=== PATIENT | female | born 1985 | race Caucasian/White ===

== ENCOUNTER 2016-05-07 06:57 | Inpatient (IN) | payer BC ==
[2016-05-07] MEDS: RINGERS SOLUTION,LACTATED 1,000 ML IV PRN ×2 (07:25→08:28)
[2016-05-07] MEDS ORDERED: OXYTOCIN 20 UNITS in RINGERS SOLUTION,LACTATED 1,000 ML IV ONE (09:00)
[2016-05-07] MEDS ORDERED: ceFAZolin SODIUM 2 GM in DEXTROSE 5 % IN WATER 50 ML IV ONE ×2 (09:00)
[2016-05-07] MEDS ORDERED: RINGERS SOLUTION,LACTATED 1,000 ML IV ONE (10:00)
[2016-05-07] MEDS ORDERED: ONDANSETRON HCL/PF 2 MG/ML VIAL IV PRN (10:52)
[2016-05-07] MEDS ORDERED: SIMETHICONE 80 MG TAB.CHEW PO PRN (10:52)
[2016-05-07] MEDS ORDERED: oxyCODONE HCL/ACETAMINOPHEN 1 TAB TABLET PO PRN (10:52)
[2016-05-07] MEDS ORDERED: BISACODYL 10 MG SUPP.RECT RC PRN (10:52)
[2016-05-07] MEDS ORDERED: SENNOSIDES 8.6 MG TABLET PO PRN (10:52)
--- NOTE | 2016-05-07 10:56 | OR ---
Operative Report - Dictated Report Narrative: Indication: 31-year-old 5 para 2 at 39 2/7 weeks with prior section desires repeat . Pre Operative Diagnosis: 39-2/7 week intrauterine , prior section Post Operative Diagnosis: Same. Procedure: Repeat low transverse section. Surgeon: Ariel Davies DO Supply And Distribution Manager: none Anesthesia: Spinal, TAP block Estimated Blood Loss: 300 mL Urine Output: 300 mL clear urine Fluids Replacement: 1600 mL Drains: Osullivan to gravity Surgical Complications: None Specimens: Placenta to freezer Findings: Female in cephalic presentation born at 1003 on 05/07/2015 with Apgars 9 and 9 weighing 3570 g. Normal uterus, tubes, ovaries Technique: The patient was taken to the operating room and placed in dorsal supine position with a left lateral tilt. After adequate spinal anesthesia, osullivan catheter inserted, SCDs placed, and 2 g of Ancef given preoperatively, the abdominal cavity was entered using sharp and blunt dissection. Two rolled laps were placed in the pericolic gutters on either side of the uterus. A transverse incision was made in the lower uterine segment and extended laterally and upwardly with digital traction. Clear fluid was noted upon amniotomy. The was delivered easily. The cord was clamped and cut and infant was handed off to awaiting peditrician. The placenta was allowed to deliver spontaneously. The uterus was cleared of clot and debris. Uterine incision was closed with 0 Vicryl using a running stitch. A second imbricating layer was placed. Excellent hemostasis was noted. The rolled laps were removed from the abdominal cavitiy. The peritoneum was closed with a running 3- 0 Monocryl. The same suture was used to approximate the rectus and pyramidalis muscles. The fascia was closed with a running 0 Vicryl. The subcutaneous layer was closed with a running 3-0 Monocryl. The same suture was used to approximate the subdermal layer. The skin was closed with a running 4-0 Monocryl. Exophin sterile dressing applied. Sponge, lap, needle, and instrument count were correct x 2. Disposition: To post anesthesia care unit in good condition
[2016-05-07] MEDS: IBUPROFEN 800 MG TABLET PO PRN ×2 (12:20→19:05)
[2016-05-07] MEDS: oxyCODONE HCL/ACETAMINOPHEN 1 TAB TABLET PO PRN (12:21)
[2016-05-07] MEDS: ENOXAPARIN SODIUM 40 MG/0.4 ML SYRG SC SCH (19:06)
[2016-05-07] MEDS: DOCUSATE SODIUM 100 MG CAPSULE PO SCH (20:57)
[2016-05-08] MEDS: IBUPROFEN 800 MG TABLET PO PRN ×4 (01:29→22:14)
[2016-05-08] MEDS: oxyCODONE HCL/ACETAMINOPHEN 1 TAB TABLET PO PRN (04:05)
[2016-05-08] MEDS: DOCUSATE SODIUM 100 MG CAPSULE PO SCH ×2 (09:54→22:14)
[2016-05-08] MEDS: PRENATAL VIT#96/FERROUS FUM/FA 1 TAB TABLET PO SCH (09:54)
[2016-05-08] MEDS: VITAMIN E (DL,TOCOPHERYL ACET) 400 UNITS CAPSULE PO SCH (09:54)
[2016-05-08] MEDS: ASCORBIC ACID 500 MG TABLET PO SCH (09:54)
[2016-05-08] MEDS: [UNRECOGNIZED DRUG - OTHER] PO SCH (11:22)
[2016-05-08] MEDS: CALCIUM PO SCH (11:22)
--- NOTE | 2016-05-08 12:08 | PN ---
Subjective - Date and Time Seen Date: 05/08/16 Time: 12:07 Objective - Vitals Vitals: Last Vital Signs Temp 36.6 C 05/08/16 01:32 Pulse 79 05/08/16 06:57 Resp 18 05/08/16 06:57 BP 112/69 05/08/16 06:57 Pulse Ox 98 05/08/16 06:57 Patient denies complaints. Tolerating regular diet. Ambulating without difficulty. Pain well controlled. Lochia wnl. Abdomen - soft, appropriately tender Incision - clean, dry, intact Uterus - firm, at umbilicus -1 No calf tenderness Impression: Post op day #1 s/p repeat section. Plan: Continue routine post-operative/ care Cauti Physician Documentation - Urinary Catheter Management Urethral (Soliz) Date of Insertion: 05/07/16 Date of Removal: 05/07/16 Time of Removal: 22:15
[2016-05-08] MEDS: ENOXAPARIN SODIUM 40 MG/0.4 ML SYRG SC SCH (18:58)
[2016-05-09] MEDS: IBUPROFEN 800 MG TABLET PO PRN (04:46)
[2016-05-09] MEDS: DOCUSATE SODIUM 100 MG CAPSULE PO SCH (08:16)
[2016-05-09] MEDS: VITAMIN E (DL,TOCOPHERYL ACET) 400 UNITS CAPSULE PO SCH (08:16)
[2016-05-09] MEDS: ASCORBIC ACID 500 MG TABLET PO SCH (08:16)
[2016-05-09] MEDS: PRENATAL VIT#96/FERROUS FUM/FA 1 TAB TABLET PO SCH (08:16)
[2016-05-09] MEDS: [UNRECOGNIZED DRUG - OTHER] PO SCH (09:17)
[2016-05-09] MEDS: CALCIUM PO SCH (09:17)
[2016-05-09 09:26] VITALS: BP 132/74
--- NOTE | 2016-05-09 13:19 | PN ---
Subjective - Date and Time Seen Date: 05/09/16 Time: 13:19 Objective - Vitals Vitals: Last Vital Signs Temp 36.8 C 05/09/16 08:20 Pulse 98 05/09/16 08:20 Resp 16 05/09/16 08:20 BP 132/74 05/09/16 08:20 Pulse Ox 98 05/09/16 08:20 Patient denies complaints. Ambulating well. Tolerating regular diet. Pain well controlled. Lochia wnl. Abdomen - soft, appropriately tender Incision - clean, dry, intact Uterus - firm, at umbilicus -2 No calf tenderness Impression: Post op day #2 s/p repeat section. Plan: Routine discharge instructions given Cauti Physician Documentation - Urinary Catheter Management Urethral (Soliz) Date of Insertion: 05/07/16 Date of Removal: 05/07/16 Time of Removal: 22:15
== END 2016-05-09 12:00 | disposition home or self-care (01) | DRG 766 ==
LOC: MS 06:57
PROVIDERS: ADMIT Obstetrics & Gynecology; ATTEND Obstetrics & Gynecology
PROC: 10D00Z1 Extraction of Products of Conception, Low, Open Approach (ICD-10-PCS; principal; 2016-05-07 10:15)
DX: O34.211 Maternal care for low transverse scar from previous cesarean delivery (principal); Z3A.39 39 weeks gestation of pregnancy; Z37.0 Single live birth

== ENCOUNTER 2019-02-02 04:56 | Inpatient (IN) ==
[2019-02-02] MEDS ORDERED: RINGER'S SOLUTION,LACTATED 1,000 ML IV PRN (05:02)
[2019-02-02] MEDS ORDERED: OXYTOCIN 20 UNITS in RINGER'S SOLUTION,LACTATED 1,000 ML IV ONE (05:02)
[2019-02-02] MEDS ORDERED: ceFAZolin SODIUM/DEXTROSE,ISO 2 GM/50 ML BAG IV ONE (05:02)
[2019-02-02] MEDS: RINGER'S SOLUTION,LACTATED 1,000 ML IV PRN ×2 (05:15→08:22)
[2019-02-02 05:55] LABS: Cocaine Ur Negative (NEGATIVE); Urine Barbiturate Negative (NEGATIVE); Urine Benzodiazepines Negative (NEGATIVE); Urine Opiates Negative (NEGATIVE); Urine PCP Negative (NEGATIVE); Urine THC Negative (NEGATIVE)
--- NOTE | 2019-02-02 07:15 | ANES ---
Anesthesia Pre Procedure Eval Vitals/Labs: Last Vital Signs Temp 36.7 C 02/02/19 06:18 Pulse 89 02/02/19 06:18 Resp 18 02/02/19 06:18 BP 146/84 H 02/02/19 06:18 Pulse Ox 98 02/02/19 06:18 HOME MEDICATIONS Folic Acid 0.8 mg PO DAILY 09/13/12 [Last Taken 09/12/12] Vits96/Iron Fum/Folic [ Tablet] 1 tab PO DAILY 09/13/12 [Last Taken 09/12/12] Vitamin E 400 unit PO DAILY 09/14/12 [Last Taken Unknown] Garlic 1,000 mg PO TID 03/11/16 [Last Taken Unknown] ascorbic acid (vitamin C) 500 mg capsule 3,000 mg PO DAILY cap 07/13/18 [Last Taken Unknown] cholecalciferol (vitamin D3) 1,000 unit capsule 1,000 unit PO DAILY 07/13/18 [Last Taken Unknown] ferrous sulfate 325 mg (65 mg iron) tablet 325 mg PO DAILY tab 07/13/18 [Last Taken Unknown] magnesium 250 mg tablet 750 mg PO DAILY tab 07/13/18 [Last Taken Unknown] mecobalamin (vitamin B12) 1,000 mcg disintegrating tablet,sublingual 1,000 mcg SL TID 07/13/18 [Last Taken Unknown] [place]-3 Fatty Acids/Fish Oil [Fish Oil 1,000 mg Capsule] 1 ea PO DAILY 02/02/19 [Last Taken Unknown] Allergies/Adverse Reactions: Allergies Allergy/AdvReac Type Severity Reaction Status Date / Time tramadol AdvReac Unknown Dizzy Verified 02/02/19 05:44 - Planned Procedure Planned Procedure: Repeat w/ poss abdominal scar revision Medication List Reviewed:: Yes Allergies Verified: Yes Medical History (Updated 07/13/18 @ 13:10 by Michael Davies DO) Body mass index (BMI) of 38.0 to 38.9 in adult (Chronic) Body piercing Onset Date: Unknown Headache Onset Date: Unknown Heart murmur Onset Date: ~2004 Obesity Onset Date: Unknown Wears glasses Onset Date: Unknown Abnormal Pap smear of cervix Onset Date: ~2005 w/ colpo- neg results. performed in [place] , spontaneous Onset Date: ~2006 2006,2015 Anemia Onset Date: ~2009 w/ Appendicitis Onset Date: 09/20/10 Asmita Depression Onset Date: ~12/24/12 tx'd w/Prozac for 1-2 months. no meds after that Surgical History (Updated 07/13/18 @ 13:10 by Michael Davies DO) Previous section (Chronic) x3 History of colposcopy Onset Date: ~2005 Negative results. performed in [place] Hx of appendectomy Onset Date: 09/20/10 Asmita Previous section Onset Date: 06/13/092009-Primary breech, 2012-Rpt, 2017-Rpt, Family History (Updated 07/13/18 @ 09:47 by Dwight Cox RN) Mother Hypertension Arthritis Hepatitis A as an infant Gastric ulcer Father Hyperlipemia Arthritis Sister Asthma Uncle CVA (cerebral vascular accident) Hypertension Myocardial infarction Aunt cervical cancer Son Heart murmur - Family Anesthesia History Family History:: no untoward family reactions to anesthesia - Airway/Neck/Teeth Within Normal Limits:: Yes Teeth Condition: intact Neck Exam: full range of motion Mallampatti Score: 2 Thyromental (T-M) distance: > 6 cm Mandibulo Hyoid distance: > 3 cm - Respiratory Respiratory Physical: lungs clear Smoking Status: Former smoker Sleep Apnea currently treated: No Sleep Apnea by current assessment: No - Cardiovascular Tolerate Activity: Fair Heart Sounds: S1 & S2, Regular - Anesthesia Assessment and Plan ASA Class: PS, II Anesthesia Type Plan: Spinal - tap block for postop analgesia
[2019-02-02] MEDS ORDERED: ONDANSETRON HCL/PF 2 MG/ML VIAL IV PRN (09:19)
[2019-02-02] MEDS ORDERED: IBUPROFEN 800 MG TABLET PO PRN (09:19)
[2019-02-02] MEDS ORDERED: BISACODYL 10 MG SUPP.RECT RC PRN (09:19)
[2019-02-02] MEDS ORDERED: SENNOSIDES 8.6 MG TABLET PO PRN (09:19)
--- NOTE | 2019-02-02 09:29 | OR ---
Operative Report - Dictated Report Narrative: Indication: 33-year-old 6 para 3-0-2-3 at 37-1/7 weeks with prior section x3 presents to labor and delivery for repeat low transverse section with contractions every 2 to 5 minutes of increasing intensity. status: Planned Pre Operative Diagnosis: 37 1/7-week intrauterine . Prior section x3. Early labor. Morbid obesity. Post Operative Diagnosis: Same. Procedure: Repeat low transverse section. Surgeon: Ariel Davies DO Communications Department Chairperson: OR Staff Anesthesia: Spinal, TAP block Estimated Blood Loss: 300 mL Urine Output: 500 mL clear urine Fluids Replacement: 2500 mL of crystalloid Drains: Osullivan to gravity Surgical Complications: None Specimens: Placenta to freezer Findings: Female born at 0814 on 02/02/2018 with Apgars 9 and 9, weighing 3337 g in cephalic presentation. Normal uterus, tubes, ovaries. Lower uterine segment was at least 3 mm in thickness with very minimum scarring throughout the entire pelvis and abdomen. Technique: The patient was taken to the operating room and placed in dorsal supine position with a left lateral tilt. After adequate spinal anesthesia, osullivan catheter inserted, SCDs placed, and 2 g of Ancef given preoperatively, the abdomen was prepped with DuraPrep. After the prep was dried, a Traxi pannus retractor was applied to allow exposure to the incision. The abdominal cavity was entered using sharp and blunt dissection. Two rolled laps were placed in the pericolic gutters on either side of the uterus. A transverse incision was made in the lower uterine segment and extended laterally and upwardly with digital traction. Clear fluid was noted upon amniotomy. A vigorously crying was delivered easily. The baby was dried with warm sterile towels. After approximately 30 to 45 seconds, the cord was clamped and cut and was handed off to awaiting manager fast food. The placenta was allowed to deliver spontaneously. The uterus was cleared of clot and debris. Uterine incision was closed with 0 Vicryl using a running stitch. A second imbricating layer was placed. Excellent hemostasis was noted. The rolled laps were removed from the abdominal cavitiy. The peritoneum was closed with a running 3-0 Monocryl. The same suture was used to approximate the rectus and pyramidalis muscles. The fascia was closed with a running 0 Vicryl. The subcutaneous layer was closed with a running 3-0 Monocryl. The same suture was used to approximate the subdermal layer. The skin was closed with a running 4-0 Monocryl and Dermabond. Sponge, lap, needle, and instrument count were correct x 2. The Traxi retractor was removed in PACU. Disposition: To post anesthesia care unit in good condition History for MU History for MU Definition: * The number of deliveries resulting in a live the patient experienced prior to current hospitalization * The previous delivery of live twins or any live multiple gestation is considered one live event. *If primagravida or nulliparous is documented select zero for the number of previous live births. Live Events: Live Events: 3
--- NOTE | 2019-02-02 09:47 | ANES ---
Post Anesthesia Discharge - Transfer of Care Transfer of Care handoff given to nurse: Yes - Discharge from PACU Discharge from PACU when meets criteria: Yes
--- NOTE | 2019-02-02 09:50 | ANES ---
Anesthesia Procedure Note Procedure Note: ANESTHESIA PROCEDURE NOTE Date of procedure: 02/02/2019. Time of procedure: 01 04. Performed by: Sebas Jones CRNA Stopper Setter: Maricruz Gamble RN . Preprocedure diagnosis: Previous section. Post procedure diagnosis: Same. Procedure: Ultrasound-guided bilateral tap block Indications: Postoperative analgesia. Findings: Patient brought the PACU and placed in a supine position. The patient's right abdominal wall was prepped with ChloraPrep. A 20-gauge 4 inch regional block needle was advanced under ultrasound guidance until tip of needle was positioned just posterior to fascial layer that separates the internal oblique and trans-abdominus muscles. 20 mL of 0.25% Marcaine with epinephrine 1-200,000 was injected with adequate spread of local anesthesia noted. Procedure was then repeated on patient's left side. EBL: Minimal. Fluids: N/A. Specimen: N/A. Post procedure condition: The patient tolerated the procedure well. No complications were noted. Thank you for this consultation Sebas Jones CRNA
--- NOTE | 2019-02-02 10:12 | ANES ---
Post Anesthesia Assessment - Vital Signs Vitals: Last Vital Signs Temp 36.7 C 02/02/19 06:18 Pulse 88 02/02/19 10:00 Resp 18 02/02/19 10:00 BP 118/76 02/02/19 10:00 Pulse Ox 97 02/02/19 10:00 Airway Patency: Normal - Mental Status Level Of Consciousness: Awake - Pain Level Pain Score: 2 - N/V Assessment Nausea/Vomiting Presence: None Dehydration:: No
[2019-02-02] MEDS: oxyCODONE HCL/ACETAMINOPHEN 1 TAB TABLET PO PRN ×3 (10:53→20:19)
[2019-02-02] MEDS: IBUPROFEN 800 MG TABLET PO PRN ×2 (10:53→17:11)
[2019-02-02] MEDS: ENOXAPARIN SODIUM 40 MG/0.4 ML SYRG SC SCH (17:11)
[2019-02-02] MEDS: DOCUSATE SODIUM 100 MG CAPSULE PO SCH (20:19)
[2019-02-03] MEDS: oxyCODONE HCL/ACETAMINOPHEN 1 TAB TABLET PO PRN (01:26)
[2019-02-03] MEDS: IBUPROFEN 800 MG TABLET PO PRN ×2 (01:26→15:36)
[2019-02-03] MEDS: SIMETHICONE 80 MG TAB.CHEW PO PRN ×2 (02:33→06:40)
[2019-02-03] MEDS: ONDANSETRON HCL 4 MG TABLET PO PRN ×2 (07:31→11:46)
[2019-02-03] MEDS: DOCUSATE SODIUM 100 MG CAPSULE PO SCH ×2 (09:00→20:28)
[2019-02-03] MEDS ORDERED: hydrOXYzine PAMOATE 25 MG CAPSULE PO PRN (10:53)
--- NOTE | 2019-02-03 17:40 | PN ---
Subjective - Date and Time Seen Date: 02/03/19 Time: 17:37 - Pt seen this am and late afternoon Objective - Vitals Vitals: Last Vital Signs Temp 35.7 C L 02/03/19 11:06 Pulse 88 02/03/19 11:06 Resp 18 02/03/19 11:06 BP 127/81 02/03/19 11:06 Pulse Ox 94 02/03/19 11:06 Patient had a lot of greasy and sugary foods yesterday as well as large quantity of caffeinated soda. Late last night through most of this morning patient was nauseated with several emesis. Since this morning she has been ambulating more, passing more flatus, and feeling much better. Tolerating regular diet. Ambulating without difficulty. Pain well controlled.] Lochia wnl. Abdomen - soft, appropriately tender Incision -clean, dry, intact uterus - firm, at umbilicus -1 no calf tenderness Impression: Post op day #1 s/p repeat section. Postoperative nausea and vomiting resolved. Plan: Continue routine post-operative/ care. Encouraged patient to eat healthier diet and avoid soda. Cauti Physician Documentation - Urinary Catheter Management Urethral (Soliz) Date of Insertion: 02/02/19 Time of Insertion: 08:08 Date of Removal: 02/02/19 Time of Removal: 20:20
[2019-02-03] MEDS: ENOXAPARIN SODIUM 40 MG/0.4 ML SYRG SC SCH (17:42)
[2019-02-04] MEDS: IBUPROFEN 800 MG TABLET PO PRN ×2 (05:09→13:14)
[2019-02-04] MEDS: DOCUSATE SODIUM 100 MG CAPSULE PO SCH ×2 (10:23→21:14)
--- NOTE | 2019-02-04 16:42 | PN ---
Subjective - Date and Time Seen Date: 02/04/19 Time: 16:39 - Seen this a.m. Objective - Vitals Vitals: Last Vital Signs Temp 37.0 C 02/04/19 12:56 Pulse 91 02/04/19 12:56 Resp 16 02/04/19 12:56 BP 111/68 02/04/19 12:56 Pulse Ox 98 02/04/19 12:56 Patient denies complaints. Ambulating well. Tolerating regular diet. Pain well controlled. Lochia wnl. Abdomen - soft, appropriately tender Incision -clean, dry, intact uterus - firm, at umbilicus -2 no calf tenderness Impression: Post op day #2 s/p repeat section. Plan: Continue routine post-operative/ care Cauti Physician Documentation - Urinary Catheter Management Urethral (Soliz) Date of Insertion: 02/02/19 Time of Insertion: 08:08 Date of Removal: 02/02/19 Time of Removal: 20:20
[2019-02-04] MEDS: ENOXAPARIN SODIUM 40 MG/0.4 ML SYRG SC SCH (18:59)
[2019-02-05] MEDS: DOCUSATE SODIUM 100 MG CAPSULE PO SCH (07:59)
[2019-02-05 08:41] VITALS: BP 119/75
[2019-02-05] MEDS: oxyCODONE HCL/ACETAMINOPHEN 1 TAB TABLET PO PRN ×2 (09:28→13:20)
--- NOTE | 2019-02-05 10:06 | PN ---
Subjective - Date and Time Seen Date: 02/05/19 Time: 10:05 Objective - Vitals Vitals: Last Vital Signs Temp 36.6 C 02/05/19 07:54 Pulse 106 H 02/05/19 07:54 Resp 18 02/05/19 07:54 BP 119/75 02/05/19 07:54 Pulse Ox 100 02/05/19 07:54 Patient denies complaints. Ambulating without difficulty. Tolerating regular diet. Pain well controlled. Lochia wnl. Abdomen - soft, appropriately tender Incision -clean, dry, intact uterus - firm, at umbilicus -3 no calf tenderness Impression: Post op day #3 s/p repeat section. Morbid obesity. Plan: Routine discharge instructions Cauti Physician Documentation - Urinary Catheter Management Urethral (Soliz) Date of Insertion: 02/02/19 Time of Insertion: 08:08 Date of Removal: 02/02/19 Time of Removal: 20:20
[2019-02-05] MEDS ORDERED: CYANOCOBALAMIN 1,000 MCG TABLET PO SCH (13:00)
[2019-02-05] MEDS ORDERED: Garlic 1,000 MG PO SCH (13:00)
[2019-02-05] MEDS: IBUPROFEN 800 MG TABLET PO PRN (13:19)
[2019-02-06] MEDS ORDERED: OMEGA-3 FATTY ACIDS 1 CAP CAPSULE PO SCH (09:00)
[2019-02-06] MEDS ORDERED: VITAMIN E (DL,TOCOPHERYL ACET) 400 UNITS CAPSULE PO SCH (09:00)
[2019-02-06] MEDS ORDERED: FOLIC ACID 0.4 MG TABLET PO SCH (09:00)
[2019-02-06] MEDS ORDERED: MAGNESIUM PO SCH (09:00)
[2019-02-06] MEDS ORDERED: ASCORBIC ACID 500 MG TABLET PO SCH (09:00)
[2019-02-06] MEDS ORDERED: PRENATAL VITS96/IRON FUM/FOLIC 1 TAB TABLET PO SCH (09:00)
[2019-02-06] MEDS ORDERED: CHOLECALCIFEROL 1,000 UNIT CAPSULE PO SCH (09:00)
[2019-02-06] MEDS ORDERED: FERROUS SULFATE 325 MG TABLET PO SCH (09:00)
== END 2019-02-05 13:40 | disposition home or self-care (01) | DRG 788 ==
LOC: OB 04:56
PROVIDERS: ADMIT Obstetrics & Gynecology; ATTEND Obstetrics & Gynecology
CPT/HCPCS: 59025; 80307